=== PATIENT | male | born 1950 | race Caucasian/White ===

== ENCOUNTER 2024-07-06 07:06 | Inpatient (IN) | payer OTHER ==
[2024-07-06 07:57] LABS: #Basophils Less than 0.03 10x3/uL (0.0-0.2); %Basophils 0.5 % (0.0-1.0); %Eosinophils 0.9 % (0.0-10.0); %Lymphocytes 13.3 % (21.0-51.0); %Monocytes 12.6 % (0.0-10.0); %Neutrophils 72.5 % (42.0-75.0); Hematocrit 32.5 % (42.0-52.0); Hemoglobin 10.7 g/dL (14.0-18.0); Mean Corpuscular HGB CONC 32.9 g/dL (32.0-36.0); Mean Corpuscular Hemoglobin 29.2 pg (27.0-31.0); Mean Corpuscular Volume 88.6 fL (78.0-98.0); Mean Platelet Volume 10.6 fL (7.4-10.4); Platelet Count 172 10x3/uL (130-400); RBC Distribution Width 13.9 % (11.5-14.5); Red Blood Cell (RBC) Count 3.67 mill/uL (4.70-6.10)
[2024-07-06] MEDS ORDERED: Sodium Chloride 0.9% 100 ML ONE (08:07)
[2024-07-06] MEDS ORDERED: cefTRIAXone (ROCEPHIN) 2 GM VIAL ONE (08:07)
[2024-07-06] MEDS ORDERED: Azithromycin 500 MG VIAL ONE (08:07)
[2024-07-06] MEDS ORDERED: methylPREDNISolone Sod Succ/PF 125 MG/2 ML VIAL ONE (08:07)
[2024-07-06 08:09] LABS: INR-International Normal Ratio 1.6; PTT 41.7 sec (22.9-36.1); Prothrombin Time 19.3 sec (12.0-14.7)
[2024-07-06 08:19] LABS: ALT (SGPT) 9 U/L (Less than 45); AST (SGOT) 20 U/L (11-34); Albumin 3.5 g/dL (3.1-4.5); Alkaline Phosphatase 83 U/L (40-110); Anion Gap 16 mmol/L (10-20); BUN (Urea Nitrogen) 21 mg/dL (8.4-25.7); Bilirubin, Total 0.3 mg/dL (0.3-1.2); Calc. Creatinine Clearance 0 mL/min (70-130); Calcium 8.8 mg/dL (7.8-10.44); Carbon Dioxide 17 mmol/L (23-31); Chloride 114 mmol/L (98-107); Estimated GFR 62; Globulin 2.9 g/dL (2.4-3.5); Glucose 114 mg/dL (83-110); Potassium 3.7 mmol/L (3.5-5.1); Protein, Total 6.4 g/dL (5.8-8.1); Sodium 143 mmol/L (136-145)
[2024-07-06] MEDS ORDERED: Oseltamivir 75 MG CAP ONE (09:19)
[2024-07-06] MEDS ORDERED: Albuterol 2.5 MG (3 mL) NEB ONE (11:13)
[2024-07-06] MEDS ORDERED: Ipratropium Bromide 2.5 ml Neb ONE (11:13)
[2024-07-06] MEDS ORDERED: Ketorolac Tromethamine 30 MG (1 mL) VIAL IVP PRN (13:00)
[2024-07-06] MEDS ORDERED: Ondansetron ODT 4 MG TAB PO PRN (13:00)
[2024-07-06 14:29] VITALS: BMI 31.7
[2024-07-06] MEDS: FLU (Fluad Triv) TS24-25 (65UP)/MF59C/PF 45 MCG/0.5 ML Syringe IM ONE (15:25)
[2024-07-06] MEDS: Benzonatate 100 MG CAP PO SCH ×2 (16:43→21:04)
[2024-07-06] MEDS: Acetaminophen 325 MG TAB PO PRN (16:43)
[2024-07-06] MEDS: Ipratropium/Albuterol 3 ML NEB NEB SCH (16:46)
[2024-07-06] MEDS: Rivaroxaban 10 MG TAB PO SCH (17:57)
[2024-07-06] MEDS: methylPREDNISolone Sod Succ 40 MG VIAL IVP SCH (17:57)
[2024-07-06] MEDS: Pantoprazole 40 MG VIAL IVP SCH (18:25)
[2024-07-06] MEDS: Oseltamivir 75 MG CAP PO SCH (21:04)
[2024-07-07] MEDS: Melatonin 3 MG TAB PO PRN (00:30)
[2024-07-07] MEDS: Guaifenesin DM 100-10/5 ML UDCUP PO PRN (00:30)
[2024-07-07 07:01] LABS: #Basophils Less than 0.03 10x3/uL (0.0-0.2); #Eosinophils Less than 0.03 10x3/uL (0.0-0.7); %Lymphocytes 6.4 % (21.0-51.0); %Monocytes 5.6 % (0.0-10.0); %Neutrophils 87.7 % (42.0-75.0); Hematocrit 33.6 % (42.0-52.0); Hemoglobin 10.7 g/dL (14.0-18.0); Mean Corpuscular HGB CONC 31.8 g/dL (32.0-36.0); Mean Corpuscular Hemoglobin 28.8 pg (27.0-31.0); Mean Corpuscular Volume 90.3 fL (78.0-98.0); Mean Platelet Volume 11.1 fL (7.4-10.4); Platelet Count 185 10x3/uL (130-400); RBC Distribution Width 14.1 % (11.5-14.5); Red Blood Cell (RBC) Count 3.72 mill/uL (4.70-6.10)
[2024-07-07 07:25] LABS: Anion Gap 14 mmol/L (10-20); BUN (Urea Nitrogen) 16 mg/dL (8.4-25.7); Calc. Creatinine Clearance 99 mL/min (70-130); Calcium 8.7 mg/dL (7.8-10.44); Carbon Dioxide 18 mmol/L (23-31); Chloride 115 mmol/L (98-107); Estimated GFR 79; Glucose 142 mg/dL (83-110); Potassium 4.8 mmol/L (3.5-5.1); Sodium 142 mmol/L (136-145)
[2024-07-07] MEDS: cefTRIAXone\\ROCEPHIN 2 GM in Sodium Chloride 0.9% 100 ML IVPB SCH (08:54)
[2024-07-07] MEDS: Pantoprazole 40 MG VIAL IVP SCH (08:54)
[2024-07-07] MEDS: Azithromycin 500 MG in Sodium Chloride 0.9% 250 ML 250 ML IVPB SCH (08:54)
[2024-07-07] MEDS: Furosemide 20 MG TAB PO SCH (08:54)
[2024-07-07] MEDS ORDERED: Enoxaparin 40 MG (0.4 mL) SYRINGE SC SCH (09:00)
[2024-07-07] MEDS: Ipratropium/Albuterol 3 ML NEB NEB PRN (22:46)
[2024-07-08] MEDS: Ibuprofen 600 MG TAB PO PRN (06:11)
[2024-07-08] MEDS: methylPREDNISolone Sod Succ 40 MG VIAL IVP SCH (14:35)
[2024-07-09 05:45] LABS: #Basophils Less than 0.03 10x3/uL (0.0-0.2); #Eosinophils Less than 0.03 10x3/uL (0.0-0.7); %Lymphocytes 8.6 % (21.0-51.0); %Monocytes 4.5 % (0.0-10.0); %Neutrophils 86.5 % (42.0-75.0); Hematocrit 32.7 % (42.0-52.0); Hemoglobin 10.6 g/dL (14.0-18.0); Mean Corpuscular HGB CONC 32.4 g/dL (32.0-36.0); Mean Corpuscular Hemoglobin 28.9 pg (27.0-31.0); Mean Corpuscular Volume 89.1 fL (78.0-98.0); Mean Platelet Volume 11.3 fL (7.4-10.4); Platelet Count 177 10x3/uL (130-400); Red Blood Cell (RBC) Count 3.67 mill/uL (4.70-6.10)
[2024-07-09 05:57] LABS: Anion Gap 12 mmol/L (10-20); BUN (Urea Nitrogen) 22 mg/dL (8.4-25.7); Calc. Creatinine Clearance 104 mL/min (70-130); Calcium 8.3 mg/dL (7.8-10.44); Carbon Dioxide 21 mmol/L (23-31); Chloride 111 mmol/L (98-107); Estimated GFR 85; Glucose 124 mg/dL (83-110); Sodium 140 mmol/L (136-145)
[2024-07-09] MEDS ORDERED: Ipratropium/Albuterol 3 ML NEB NEB PRN (08:01)
[2024-07-09] MEDS: Azithromycin 250 MG TAB PO SCH (08:05)
[2024-07-09] MEDS: Pantoprazole 40 MG DR.TAB PO SCH (08:05)
[2024-07-09 17:08] VITALS: BP 131/79; TEMP 97.8
== END 2024-07-09 17:47 | DRG 190 ==
LOC: ERS 07:06 → EEVIPCON 07:06 → T4-A 14:18
PROVIDERS: ADMIT Internal Medicine; ATTEND Hospitalist
DX: J44.1 Chronic obstructive pulmonary disease with (acute) exacerbation (principal); J10.00 Influenza due to other identified influenza virus with unspecified type of pneumonia; I50.9 Heart failure, unspecified; Z86.718 Personal history of other venous thrombosis and embolism; Z88.8 Allergy status to other drugs, medicaments and biological substances; Z90.49 Acquired absence of other specified parts of digestive tract; Z98.890 Other specified postprocedural states; Z79.899 Other long term (current) drug therapy
CPT/HCPCS: 36415; 71045; 80048; 80053; 83605; 83880; 85025; 85610; 85730; 87040; 87428; 93005; 94640; 94760; 96365; 96367; 96375; J0456; J0696; J2470; J2919; J7050; J7611; J7620; J7644